=== PATIENT | male | born 1960 | race Caucasian/White ===

== ENCOUNTER → 2017-12-25 | Outpatient (CLI) | payer BC, OTHER ==
--- NOTE | 2017-12-25 13:17 | DIAGNOSTIC IMAGING REPORT ---
LUMBAR SPINE MIN 4 VIEWS HISTORY: Pain LOW BACK PAIN COMPARISON: None. FINDINGS: There is no fracture. No subluxation. Disc spaces are preserved. IMPRESSION: No fracture or subluxation within the lumbar spine. The above report was generated using voice recognition software. It may contain grammatical, syntax or spelling errors. Electronically signed by: Nicolas Islas M.D. 12/25/2017 1:16 PM Dictated Date/Time: 12/25/2017 1:14 PM
== END | disposition home or self-care (01) ==
LOC: C.RDSM 13:00
PROVIDERS: ATTEND Family Medicine
DX: M54.5 Low back pain (principal)